=== PATIENT | female | born 1950 | race Caucasian/White ===

== ENCOUNTER 2017-05-04 11:38 | Inpatient (IN) ==
[2017-05-04] MEDS ORDERED: ASPIRIN 325 MG TABLET PO STA (12:02)
--- NOTE | 2017-05-04 12:05 | EKG Report ---
Stationary ECG Study [facility] ER Test Date: 05/04/2017 11:46:16 AM Pat Name: EMANUEL REYES Department: Room: Gender: F Rn Baby: Nick Jean : 1950 Requested by: Ced Elizondo Order Number: [id number] Reading MD: SABRA RIVAS Intervals [place] Rate: 67 P: 0 [place]: 211 QRS: 48 QRSD: 86 T: 51 QT: 376 QTc: 391 Interpretive Statements SINUS RHYTHM WITH FIRST DEGREE AV BLOCK Electronically Signed On 05-05-17 08:04:14 CDT by SABRA RIVAS [email or web address]
[2017-05-04 12:12] LABS: Basophils # 0.1 10*3/uL (0.0-0.2); Basophils % 1.1 % (0.0-0.8); Eosinophils # 0.1 10*3/uL (0.0-0.87); Eosinophils % 2.6 % (0.00-10.9); Hematocrit 42.1 VOL% (35.7-47.0); Hemoglobin 14.6 GM/DL (12.0-16.0); Immature Granulocytes % 0.2 %; Immature Granulocytes Absolute 0.01 #; Lymphocytes # 1.6 10*3/uL (1.4-4.0); Lymphocytes % 29.3 % (21.3-54.2); Mean Corpuscular HGB Conc 34.7 GM/DL (32-36); Mean Corpuscular Hemoglobin 32 PG (27-34); Mean Corpuscular Volume 91.7 FL (87-102); Mean Platelet Volume 11.1 FL (9.6-12.0); Monocytes # 0.8 10*3/uL (0.11-0.8); Monocytes % 15.6 % (1.7-12.7); Neutrophils # 2.8 10*3/uL (1.4-7.4); Neutrophils % 51.2 % (38.7-73.9); Platelet Count 202 T/CUMM (130-400); Red Blood Count 4.59 MC/CUMM (3.8-5.5); Red Cell Distribution Width 12.5 % (9.3-17.3); White Blood Count 5.4 T/CUMM (4-12)
[2017-05-04] MEDS: NITROGLYCERIN SL 0.4 MG TABLET SL PRN (12:19)
[2017-05-04] MEDS ORDERED: ASPIRIN 325 MG TABLET ONE (12:20)
[2017-05-04 12:37] LABS: Albumin 4.5 G/DL (3.4-5.0); Calcium 8.8 MG/DL (8.5-10.1); Osmolality,Calculated 284.1 MOS/KG (273-304); Potassium 4.6 MMOL/L (3.5-5.1); Total Protein 7.3 G/DL (6.4-8.3)
--- NOTE | 2017-05-04 12:39 | XRay Report ---
XR chest 1V portable Indication: Chest pain. Chest one view: Comparison 07/27/2016. Heart size and mediastinal contour are normal. Lungs are hypoinflated but generally clear, except for minimal bibasilar atelectasis. Pleural spaces are clear. Bones are intact. Impression: Mild pulmonary hypoinflation with atelectasis. PROCEDURE INTERPRETED AT [facility] DEPARTMENT OF RADIOLOGY Final Report Signed by: Romero Demarco M.D.
[2017-05-04 12:41] LABS: Eosinophils 2 % (0-10); Hypochromasia 1+; Lymphocytes 32 % (20-55); Platelet Estimate Normal; Segmented Neutrophils 46 % (50-85); Total Cells Counted 100
[2017-05-04] MEDS ORDERED: ONDANSETRON 4 MG/2 ML VIAL IV STA (12:41)
[2017-05-04] MEDS ORDERED: ONDANSETRON 4 MG/2 ML VIAL ONE (12:42)
--- NOTE | 2017-05-04 13:10 | EKG Report ---
Stationary ECG Study 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
[2017-05-04] MEDS ORDERED: MORPHINE 2 MG/1 ML SYRINGE IV PRN (13:22)
[2017-05-04] MEDS ORDERED: MAGNESIUM SULF RIDER 4 GM in PREMIX 1 EACH IV PRN (13:22)
[2017-05-04] MEDS ORDERED: ZALEPLON 5 MG CAPSULE PO PRN (13:22)
[2017-05-04] MEDS ORDERED: MAGNESIUM SULF RIDER 2 GM in PREMIX 1 EACH IV PRN (13:22)
--- NOTE | 2017-05-04 13:22 | Emergency Department Note ---
IGracie Mantricia, am scribing for, and in the presence of, Antwon Mcallister MD 12:03. IEsvin Doug C, MD, personally performed the services described in this documentation, ascribed by Miranda Bowman in my presence, and it is both accurate and complete . Arrival - Arrival Chief Complaint: Chest Pain Stated Complaint: chest pain ED Nursing Triage Note: c/o having chest pain since last evening, states it is pressure in nature., denies radiating pain., + SOB., denies nausea., ekg obtained at time of triage Mode of Arrival: Ambulatory Time Seen by Provider: 05/04/17 11:54 - History of Present Illness HPI Narrative: Patient is 67-year-old white female presents emergency room complaining of substernal chest pain started 6 PM last night. Patient states the pain is an intermittent substernal discomfort is not associated with radiation, nausea, vomiting or diaphoresis. Patient states he does feel bit short of breath with it but has not had any presyncope or palpitations. Patient today when she arrived emergency room her pain was 7 of 10. Patient states she took a baby aspirin last night which is her habit. Patient states the pain kept coming and going and lasted up to an hour any one time. She told me is is a little frightened by this pain thought she better get it checked out. She has no personal history of heart disease and told me she has had a normal stress test within the year. Allergies/Adverse Reactions: Allergies Allergy/AdvReac Type Severity Reaction Status Date / Time codeine Allergy HIVES Verified 05/04/17 11:44 Home Medications: Home Medications Medication Instructions Recorded Confirmed Type Aspirin EC Tab 81 mg PO QPM 02/25/15 05/04/17 History Cranberry 500 mg PO BID 02/25/15 05/04/17 History Omeprazole [Prilosec] 20 mg PO DAILY 02/25/15 05/04/17 History Selenium 200 mcg PO DAILY 02/25/15 05/04/17 History Thyroid [[place] Thyroid] 30 mg PO DAILY 02/25/15 05/04/17 History Atorvastatin [Lipitor] 40 mg PO DAILY 07/27/16 05/04/17 History Carvedilol 25 mg PO BID 07/27/16 05/04/17 History Cholecalciferol (Vitamin D3) 2,000 unit PO DAILY 07/27/16 05/04/17 History [Vitamin D3] Irbesartan 300 mg PO DAILY 07/27/16 05/04/17 History Magnesium Oxide [Magnesium] 400 mg PO BID 07/27/16 05/04/17 History NIFEdipine [Nifedipine ER] 30 mg PO DAILY 07/27/16 05/04/17 History Meloxicam [Mobic] 7.5 mg PO BID 05/04/17 05/04/17 History Vitamin E 400 unit PO DAILY 05/04/17 05/04/17 History Review of System - Review of System 12 point system: reviewed and no additional remarkable complaints except as stated - Review of System Constitutional: Absent: chills, diaphoresis Eyes: Absent: pain Head/Ears/Nose/Throat: Absent: earache Respiratory: Absent: cough Cardiovascular: Present: chest pain Gastrointestinal: Present: nausea. Absent: abdominal pain, vomiting, diarrhea Genitourinary female: Absent: dysuria, frequency Musculoskeletal: Absent: arthralgia, back pain, leg pain Skin: Absent: rash, lesions Neurological: Absent: headache, weakness, numbness, paresthesias Psychiatric: Absent: anxiety, depression Hematological/Lymphatic: Absent: easy bleeding, easy bruising Medical,Surgical,& Family Hx - Medical History Cardio: History of: Cerebrovascular Disease, Hypertension, Valvular Heart Disease (aortic insufficiency) Neurology: History of: Cerebrovascular Accident (had head injury at age 1 with stroke.) No history of: Seizures HEENT: History of: Eye Problem (cataracts) Endocrine: History of: Dyslipidemia Gastrointestinal: History of: Diverticulitis/ Diverticulosis, GERD (esophageal stricture), Ulcerative Colitis (has had in past), GI Problems (bryant's esophagus, hiatal hernia, colon polyps) Other: No history of: Anesthesia Reactions - Surgical History Neurologic Surgeries: Patient denies: Neurologic Surgery Abdominal Surgeries: Surgical HX of: Cholecystectomy Reproductive Surgeries: Surgical HX of;: Hysterectomy Orthopedic Surgeries: Surgical HX of;: Orthopedic Surgery (shoulder surgery), Total Knee Replacement (left) - Family History Family History: Denies;: Family Heart Disease - Social History Smoking Status: Never smoker Frequency of Alcohol Use: None Type of Drug Use: None Exam Vital Signs: Vital Signs Temperature 98.3 F 05/04/17 11:50 Pulse Rate 67 05/04/17 11:50 Respiratory Rate 18 05/04/17 12:00 Blood Pressure 166/51 05/04/17 11:50 O2 Sat by Pulse Oximetry 100 05/04/17 11:40 - General General appearance: alert, in no apparent distress - Head Head exam: Present: atraumatic, normocephalic, normal inspection - Eye Eye exam: Present: normal appearance, PERRL, EOMI - ENT ENT exam: Present: normal exam, normal oropharynx, mucous membranes moist - Neck Neck exam: Present: normal inspection, full ROM, trachea midline. Absent: tenderness - Chest Chest inspection: Present: normal inspection, symmetric chest wall rise. Absent : tenderness - Respiratory Respiratory exam: Present: normal lung sounds bilaterally - Cardiovascular Cardiovascular exam: Present: regular rate, normal rhythm, normal heart sounds - Abdominal Exam Abdominal exam: Present: soft, normal bowel sounds. Absent: distention, tenderness, guarding, rebound - Extremities Exam Extremities exam: Present: normal inspection, full ROM, normal capillary refill. Absent: tenderness, pedal edema - Back Exam Back exam: Present: normal inspection, full ROM. Absent: tenderness - Neurological Exam Neurological exam: Present: alert, oriented X3, CN II-XII intact. Absent: motor sensory deficit - Psychiatric Psychiatric exam: Present: normal affect, normal mood - Skin Skin exam: Present: warm, dry, intact, normal color Course Course Narrative: Patient's clinical presentation, laboratory and radiograph findings discussed Dr. Manuel Lott. He has the patient be admitted to the service of Dr. Conrad Melendez and will continue her cardiac evaluation here in the hospital. Results - Labs CBC & BMP: 05/04/17 11:17 05/04/17 11:17 Lab Results: I have reviewed the patients labs - EKG EKG results: interpreted by ERMIAS, sinus rhythm (67 bpm), no acute changes - Diagnostic Findings Procedure: Chest x-ray: report reviewed by me (Mild pulmonary hypoinflation with atelectasis. ) Disposition Clinical Impression: Chest pain Case discussed with: patient, patient's family Disposition: Still a Patient Condition: Guarded Time of Disposition: 13:22
--- NOTE | 2017-05-04 14:35 | Cardiology History & Physical ---
Assessment and Plan (1) Chest pain Status: Acute Assessment and plan: Her chest pain is very atypical for cardiac. She has had this pain now for really 18 hours her ECG is unchanged and her cardiac enzymes are negative. She had a cardiac perfusion study 8 months ago that was completely normal. Echocardiogram is normal at that time. We will check cardiac enzymes and follow -up. I think we will try Toradol as well. Current Visit: Yes (2) Hypertension Status: Chronic Assessment and plan: We will monitor blood pressure while she is in the hospital. Current Visit: Yes (3) Dyslipidemia Status: Chronic Assessment and plan: Is a chronic issue for which she is on a statin drug i.e. atorvastatin. Current Visit: Yes (4) GERD (gastroesophageal reflux disease) Status: Chronic Assessment and plan: This is a chronic issue she has a history of basal cell records of Bryant's esophagus and esophagitis. Current Visit: Yes (5) Esophagitis Status: Chronic Assessment and plan: Patient's and chart materials she has a history of Bryant's esophagus. Current Visit: Yes (6) Obesity Status: Chronic Assessment and plan: This is chronic. Current Visit: Yes History of Present Illness Chief complaint: Chest pain History of present illness: Ms. Mcclelland is a 67 year old female previously evaluated by Dr. Mike Melendez for chest pain. See below for that detail. Patient last night had sudden onset of what she described as a sharp stabbing chest pain with some dullness with it. This would come and go. It would exacerbate with deep breath and motion. This is persisted and continued off and on but never really completely resolved. She presented the emergency room today where she has had 2 ECGs are unremarkable without acute changes. Her chest x-ray was unremarkable. Her cardiac enzymes were nondetectable troponins. The patient states her pain is better. She is given some summary nitroglycerin at which she became nauseous. She may feel little shortness of breath with her pain. Overall though it has improved. There is no real radiation of the pain or discomfort. The patient states she has had this pain off and on previously. The same pain she had when she saw Dr. Melendez August 2016 and he carried out evaluation including echocardiogram that per report with normal left ventricular size and function ejection fraction percent with mild concentric left ventricular hypertrophy. There is no significant valvular abnormalities. She had a cardiac perfusion study that was read as having no evidence of ischemia perfusion abnormalities with normal ejection fraction. Her cardiac workup was negative. Her chest pain is felt to be noncardiac. It is important to note that this patient has had persistent pain now for over 12 hours actually over 18 hours and has unremarkable normal ECG and normal cardiac enzymes. This certainly would point away from his pain being cardiac. Home Medications Medication Instructions Recorded Confirmed Type Aspirin EC Tab 81 mg PO QPM 02/25/15 05/04/17 History Cranberry 500 mg PO BID 02/25/15 05/04/17 History Omeprazole [Prilosec] 20 mg PO DAILY 02/25/15 05/04/17 History Selenium 200 mcg PO DAILY 02/25/15 05/04/17 History Thyroid [[place] Thyroid] 30 mg PO DAILY 02/25/15 05/04/17 History Atorvastatin [Lipitor] 40 mg PO DAILY 07/27/16 05/04/17 History Carvedilol 25 mg PO BID 07/27/16 05/04/17 History Cholecalciferol (Vitamin D3) 2,000 unit PO DAILY 07/27/16 05/04/17 History [Vitamin D3] Irbesartan 300 mg PO DAILY 07/27/16 05/04/17 History Magnesium Oxide [Magnesium] 400 mg PO BID 07/27/16 05/04/17 History NIFEdipine [Nifedipine ER] 30 mg PO DAILY 07/27/16 05/04/17 History Meloxicam [Mobic] 7.5 mg PO BID 05/04/17 05/04/17 History Vitamin E 400 unit PO DAILY 05/04/17 05/04/17 History Allergies Allergy/AdvReac Type Severity Reaction Status Date / Time codeine Allergy HIVES Verified 05/04/17 11:44 Review of systems: Constitutional: Denies anorexia, chills, fatigue, fever, frequent falls, night sweats, weight gain, weight loss Eyes: Denies visual changes or loss of vision Ears: Denies decreased hearing, vertigo Nose, mouth and throat: Denies dysphagia, epistaxis, headaches, neck pain, tongue swelling, Neck: Denies thyromegaly or masses. No stiffness. Cardiovascular: as per HPI Respiratory: Denies cough, dyspnea, hemoptysis, dyspnea on exertion, wheezing, snoring Gastrointestinal: Denies abdominal pain, constipation, dyspepsia, dysphagia, hematemesis, hematochezia, melena, nausea, vomiting Genitourinary: Denies dysuria, hematuria, nocturia Musculoskeletal: Denies arthralgias, joint swelling, muscle weakness, myalgias Neurological: denies abnormal gait, abnormal speech, confusion, convulsions, frequent falls, headaches, memory loss, syncope Psychiatric: Denies anxiety, confusion, depression Endocrine: Denies cold intolerance, fatigue, heat intolerance Hematologic/Lymphatic: Denies easy bleeding, easy bruising Dermatologic: Denies Rash, itching, shingles Medical,Surgical,& Family Hx - Medical History Cardio: History of: Cerebrovascular Disease, Hypertension, Valvular Heart Disease (aortic insufficiency) Neurology: History of: Cerebrovascular Accident (had head injury at age 1 with stroke.) No history of: Seizures HEENT: History of: Eye Problem (cataracts) Endocrine: History of: Dyslipidemia Gastrointestinal: History of: Diverticulitis/ Diverticulosis, GERD (esophageal stricture), Ulcerative Colitis (has had in past), GI Problems (bryant's esophagus, hiatal hernia, colon polyps) Other: No history of: Anesthesia Reactions - Surgical History Neurologic Surgeries: Patient denies: Neurologic Surgery Abdominal Surgeries: Surgical HX of: Cholecystectomy Reproductive Surgeries: Surgical HX of;: Hysterectomy Orthopedic Surgeries: Surgical HX of;: Orthopedic Surgery (shoulder surgery), Total Knee Replacement (left) - Family History Family History: Denies;: Family Heart Disease - Social History Smoking Status: Never smoker Frequency of Alcohol Use: None Type of Drug Use: None Cardiology Physical Exam - Constitutional Vitals: Vital Signs Temp Pulse Resp BP Pulse Ox 98.1 F 70 18 133/93 99 05/04/17 14:24 05/04/17 14:24 05/04/17 14:24 05/04/17 14:24 05/04/17 14:24 Intake and Output 05/03/17 05/04/17 05/04/17 23:59 07:59 15:59 Other: Weight 81.647 kg Patient Weight 05/04/17 23:59 Weight 81.647 kg Exam: General appearance: Obese, no acute distress Head exam: normal inspection, atraumatic Eye exam: Pupils are equal and reactive. EOMI. There is no trauma. Ear exam: Anatomically normal. Normal auditory acuity to conversation. Oral exam: No significant oral lesions. Neck exam: normal inspection no JVD. No carotid bruit. Trachea is in midline. Respiratory exam: clear to auscultation bilaterally posteriorly and anteriorly with good air movement. No rales, rhonchi or wheezes. Cardiovascular exam: regular rate and rhythm, no murmur or gallop or rub. No precordial lift. No bruits over the major arteries. Chest wall/torso: Anatomically normal. No tenderness, deformity Peripheral Pulses: 2+ throughout. GI/Abdominal exam: normal bowel sounds, soft and nontender, no abdominal bruits or pulsatile masses. Musculoskeletal/Extremities exam: normal inspection without edema or cyanosis. No deformities or trauma. Neurological exam: alert, oriented X3. There is no gross neurologic deficits. Psychiatric exam: normal affect, normal mood. Cognitive function is grossly intact. Skin exam: normal color, warm. No rashes or other skin lesions. Result/EKG - Labs CBC & BMP: 05/04/17 11:17 05/04/17 11:17 Lab Results: I have reviewed the past 24 hour labs Labs: Laboratory Results - last 24 hr 05/04/17 05/04/17 05/04/17 11:17 11:17 11:17 WBC 5.4 RBC 4.59 Hgb 14.6 Hct 42.1 MCV 91.7 MCH 32 MCHC 34.7 RDW 12.5 Plt Count 202 MPV 11.1 Neut % (Auto) 51.2 Lymph % (Auto) 29.3 Mcdonald % (Auto) 15.6 H Eos % (Auto) 2.6 Baso % (Auto) 1.1 H Neut # (Auto) 2.8 Lymph # (Auto) 1.6 Mcdonald # (Auto) 0.8 Eos # (Auto) 0.1 Baso # (Auto) 0.1 Total Counted 100 Immature Gran % 0.2 Nucleated RBC % 0.0 Immature Gran # 0.01 Segmented Neutrophils 46 L Lymphocytes 32 Monocytes 20 H Eosinophils 2 Nucleated RBCs # 0.00 Platelet Estimate Normal Hypochromasia 1+ Sodium 142 Potassium 4.6 Chloride 105 Carbon Dioxide 28 Anion Gap 13.6 BUN 14 Creatinine 0.80 GFR Calculation 81 BUN/Creatinine Ratio 17.00 Glucose 108 H Calculated Osmolality 284.1 Calcium 8.8 Total Bilirubin 1.00 AST 24 ALT 37 Alkaline Phosphatase 102 Troponin I < 0.015 Total Protein 7.3 Albumin 4.5 Globulin 2.8 Albumin/Globulin Ratio 1.6
[2017-05-04] MEDS: DEXTROSE 5% NACL 0.45% 1,000 ML IV SCH (14:52)
--- NOTE | 2017-05-04 15:09 | EKG Report ---
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
[2017-05-04] MEDS: ENOXAPARIN 80 MG/0.8 ML SYRINGE SUBCUT SCH (15:29)
[2017-05-04] MEDS: KETOROLAC 30 MG/1 ML VIAL IV SCH ×2 (15:29→20:11)
[2017-05-04] MEDS: ASPIRIN EC 81 MG TABLET PO SCH (18:36)
[2017-05-04] MEDS: METOPROLOL TARTRATE 25 MG TABLET PO SCH (20:14)
[2017-05-04] MEDS: CARVEDILOL 25 MG TABLET PO SCH (20:14)
[2017-05-04] MEDS: MELOXICAM 7.5 MG TABLET PO SCH (20:14)
[2017-05-04] MEDS: MAGNESIUM OXIDE 400 MG TABLET PO SCH (20:14)
[2017-05-04] MEDS: PANTOPRAZOLE 40 MG TABLET PO SCH (20:14)
[2017-05-04] MEDS ORDERED: NON-FORMULARY MEDICATION (Cranberry [Cranberry] 500 MG) PO SCH (21:00)
[2017-05-05] MEDS: DEXTROSE 5% NACL 0.45% 1,000 ML IV SCH (00:01)
[2017-05-05] MEDS: ENOXAPARIN 80 MG/0.8 ML SYRINGE SUBCUT SCH ×2 (02:03→16:53)
[2017-05-05] MEDS: KETOROLAC 30 MG/1 ML VIAL IV SCH ×2 (02:03→09:32)
--- NOTE | 2017-05-05 04:59 | EKG Report ---
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
[2017-05-05] MEDS: THYROID 60 MG TABLET PO SCH (08:08)
[2017-05-05] MEDS ORDERED: NON-FORMULARY MEDICATION (Omeprazole [Prilosec] 20 MG) PO SCH (09:00)
[2017-05-05] MEDS: IRBESARTAN 150 MG TABLET PO SCH (09:18)
[2017-05-05] MEDS: MELOXICAM 7.5 MG TABLET PO SCH ×2 (09:19→20:46)
[2017-05-05] MEDS: CARVEDILOL 25 MG TABLET PO SCH ×2 (09:19→20:46)
[2017-05-05] MEDS: CHOLECALCIFEROL 1,000 UNIT TABLET PO SCH (09:20)
[2017-05-05] MEDS: VITAMIN E 400 UNIT CAPSULE PO SCH (09:20)
[2017-05-05] MEDS: SELENIUM 200 MCG TABLET PO SCH (09:21)
[2017-05-05] MEDS: MAGNESIUM OXIDE 400 MG TABLET PO SCH ×2 (09:22→20:46)
[2017-05-05] MEDS: ATORVASTATIN 40 MG TABLET PO SCH (09:22)
[2017-05-05] MEDS: PANTOPRAZOLE 40 MG TABLET PO SCH ×2 (09:23→20:46)
[2017-05-05] MEDS: METOPROLOL TARTRATE 25 MG TABLET PO SCH ×2 (09:30→20:46)
--- NOTE | 2017-05-05 09:38 | Cardiology Progress Note ---
Assessment and Plan - Time spent with patient Time spent with patient: Greater than 30 minutes (1) Chest pain Status: Acute Assessment and plan: Her chest pain is atypical for cardiac. She continues to have some discomfort off and on. Her cardiac enzymes are nondetectable troponins. Her ECG admission was unremarkable we will repeat this. Because her recurrent symptoms and her concern that this is cardiac in the fact she has had a cholecystectomy before I think cardiac catheterization for definitive diagnosis and possible percutaneous coronary intervention is appropriate. I discussed this procedure with the patient and her as noted above. Current Visit: Yes (2) Hypertension Status: Chronic Assessment and plan: One blood pressure is upper limit this morning but the blood pressures been fairly stable. Current Visit: Yes (3) Dyslipidemia Status: Chronic Assessment and plan: Is a chronic issue for which she is on a statin drug i.e. atorvastatin. Current Visit: Yes (4) GERD (gastroesophageal reflux disease) Status: Chronic Assessment and plan: This is a chronic issue she has a history of basal cell records of Camilo's esophagus and esophagitis. Current Visit: Yes (5) Esophagitis Status: Chronic Assessment and plan: Patient's and chart materials she has a history of Camilo's esophagus. Current Visit: Yes (6) Obesity Status: Chronic Assessment and plan: This is chronic. Current Visit: Yes Cardiology - PN: Subj Interval history: Patient is doing well. She has intermittent lower mid chest pain. This comes and goes and nothing particular exacerbates it. She is concerned that it is her heart. She has had no shortness of breath nausea diaphoresis. Her initial ECG was unremarkable. Her troponins have all been nondetectable at less than 0.015. As noted previously 6-8 months ago her cardiac evaluation included ECG and cardiac perfusion study were normal for the same pain. She is recurrently had the same pain but she continues to be concerned that this is her heart. I think in light of this and the persistence and recurrence of the pain that she should have cardiac catheterization for definitive diagnosis of yes or no that this is cardiac or not. I discussed cardiac catheterization with the patient and her reviewing indication procedure how would be carried out in the risk. I discussed cardiac catheterization and percutaneous coronary intervention with the patient and available family. I reviewed with them the indications for the procedure and the basis of how the procedure would be carried out. I also reviewed with them the risk of the procedure which include but not necessarily limited to access site bleeding, bruising, pain, swelling or vascular injury that may require emergency vascular surgery, blood transfusion, or thrombin injection. Also discussed the possibility of stroke, myocardial infarction, arrhythmia which may require electrocardioversion, and the possibility of dye reaction that would require medical therapy. Also discussed the possibility of coronary artery injury, ruptured, closure or perforation that may require emergency bypass surgery. We also discussed the possibility of from a major complication. They voice understanding and agree to proceed. This procedure be carried out tomorrow by Dr. Melendez who will be in the hospital tomorrow. I have already notified hospital skoog machine operator to place her name of the cast schedule but the time to be determined. Exam (Progress Note) - Constitutional Vitals: Period Temp Pulse Resp BP Sys/Saravia Pulse Ox Last 24 Hr 96.5 F-98.4 F 58-70 16-20 122-185/51-93 93-100 Exam: General appearance: Obese, no acute distress Head exam: normal inspection, atraumatic Neck exam: normal inspection no JVD. No carotid bruit. Trachea is in midline. Respiratory exam: clear to auscultation bilaterally posteriorly and anteriorly with good air movement. No rales, rhonchi or wheezes. Cardiovascular exam: regular rate and rhythm, no murmur or gallop or rub. No precordial lift. No bruits over the major arteries. Chest wall/torso: Anatomically normal. No tenderness, deformity Peripheral Pulses: 2+ throughout. GI/Abdominal exam: normal bowel sounds, soft and nontender, no abdominal bruits or pulsatile masses. Musculoskeletal/Extremities exam: normal inspection without edema or cyanosis. No deformities or trauma. Neurological exam: alert, oriented X3. There is no gross neurologic deficits. Psychiatric exam: normal affect, normal mood. Cognitive function is grossly intact. Skin exam: normal color, warm. No rashes or other skin lesions. Result/EKG - Labs CBC & BMP: 05/04/17 11:17 05/04/17 11:17 Lab Results: I have reviewed the past 24 hour labs Labs: Laboratory Results - last 24 hr 05/04/17 05/04/17 05/04/17 11:17 11:17 11:17 WBC 5.4 RBC 4.59 Hgb 14.6 Hct 42.1 MCV 91.7 MCH 32 MCHC 34.7 RDW 12.5 Plt Count 202 MPV 11.1 Neut % (Auto) 51.2 Lymph % (Auto) 29.3 [place] % (Auto) 15.6 H Eos % (Auto) 2.6 Baso % (Auto) 1.1 H Neut # (Auto) 2.8 Lymph # (Auto) 1.6 [facility] # (Auto) 0.8 Eos # (Auto) 0.1 Baso # (Auto) 0.1 Total Counted 100 Immature Gran % 0.2 Nucleated RBC % 0.0 Immature Gran # 0.01 Segmented Neutrophils 46 L Lymphocytes 32 Monocytes 20 H Eosinophils 2 Nucleated RBCs # 0.00 Platelet Estimate Normal Hypochromasia 1+ Sodium 142 Potassium 4.6 Chloride 105 Carbon Dioxide 28 Anion Gap 13.6 BUN 14 Creatinine 0.80 GFR Calculation 81 BUN/Creatinine Ratio 17.00 Glucose 108 H Calculated Osmolality 284.1 Calcium 8.8 Total Bilirubin 1.00 AST 24 ALT 37 Alkaline Phosphatase 102 Troponin I < 0.015 Total Protein 7.3 Albumin 4.5 Globulin 2.8 Albumin/Globulin Ratio 1.6 05/04/17 05/04/17 14:32 17:33 WBC RBC Hgb Hct MCV MCH MCHC RDW Plt Count MPV Neut % (Auto) Lymph % (Auto) [facility] % (Auto) Eos % (Auto) Baso % (Auto) Neut # (Auto) Lymph # (Auto) [facility] # (Auto) Eos # (Auto) Baso # (Auto) Total Counted Immature Gran % Nucleated RBC % Immature Gran # Segmented Neutrophils Lymphocytes Monocytes Eosinophils Nucleated RBCs # Platelet Estimate Hypochromasia Sodium Potassium Chloride Carbon Dioxide Anion Gap BUN Creatinine GFR Calculation BUN/Creatinine Ratio Glucose Calculated Osmolality Calcium Total Bilirubin AST ALT Alkaline Phosphatase Troponin I < 0.015 < 0.015 Total Protein Albumin Globulin Albumin/Globulin Ratio - Impressions Impressions: Telemetry unremarkable with normal sinus rhythm.
[2017-05-05] MEDS ORDERED: MAGNESIUM SULF RIDER 2 GM in PREMIX 1 EACH IV PRN ×2 (09:44→09:48)
[2017-05-05] MEDS ORDERED: POTASSIUM CHLORIDE RIDER 10 MEQ in PREMIX 1 EACH IV PRN ×2 (09:44→09:48)
[2017-05-05] MEDS ORDERED: DIAZEPAM 5 MG TABLET PO ONE (09:48)
[2017-05-05] MEDS ORDERED: diphenhydrAMINE CAP 25 MG CAPSULE PO ONE (09:48)
[2017-05-05] MEDS ORDERED: ASPIRIN 325 MG TABLET PO ONE (09:48)
[2017-05-05] MEDS ORDERED: LOPERAMIDE 2 MG CAPSULE PO ONE (17:53)
[2017-05-05] MEDS: ASPIRIN EC 81 MG TABLET PO SCH (18:15)
[2017-05-06] MEDS: ENOXAPARIN 80 MG/0.8 ML SYRINGE SUBCUT SCH ×2 (01:53→17:16)
[2017-05-06] MEDS: NITROGLYCERIN SL 0.4 MG TABLET SL PRN (02:18)
[2017-05-06] MEDS ORDERED: ALUM/MAG/SIMETH/LIDO VISC 1:1 30 ML BOTTLE PO ONE (02:45)
[2017-05-06] MEDS: ONDANSETRON 4 MG/2 ML VIAL IV PRN ×2 (02:50→12:00)
[2017-05-06] MEDS: DEXTROSE 5% NACL 0.45% 1,000 ML IV SCH (03:09)
[2017-05-06 05:11] LABS: Risk Ratio 3.12
[2017-05-06] MEDS ORDERED: diphenhydrAMINE CAP 25 MG CAPSULE PO ONE (06:00)
[2017-05-06] MEDS ORDERED: DIAZEPAM 5 MG TABLET PO ONE (06:00)
[2017-05-06] MEDS: SODIUM CHLORIDE 0.9% 1,000 ML IV SCH ×3 (06:05→23:07)
--- NOTE | 2017-05-06 07:12 | EKG Report ---
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
[2017-05-06] MEDS: MAGNESIUM OXIDE 400 MG TABLET PO SCH ×2 (08:05→21:39)
[2017-05-06] MEDS: METOPROLOL TARTRATE 25 MG TABLET PO SCH ×2 (08:05→21:39)
[2017-05-06] MEDS: SELENIUM 200 MCG TABLET PO SCH (08:05)
[2017-05-06] MEDS: PANTOPRAZOLE 40 MG TABLET PO SCH ×2 (08:05→21:39)
[2017-05-06] MEDS: ATORVASTATIN 40 MG TABLET PO SCH (08:05)
[2017-05-06] MEDS: IRBESARTAN 150 MG TABLET PO SCH (08:05)
[2017-05-06] MEDS: CARVEDILOL 25 MG TABLET PO SCH ×2 (08:05→21:39)
[2017-05-06] MEDS: VITAMIN E 400 UNIT CAPSULE PO SCH (08:05)
[2017-05-06] MEDS: CHOLECALCIFEROL 1,000 UNIT TABLET PO SCH (08:05)
[2017-05-06] MEDS: MELOXICAM 7.5 MG TABLET PO SCH ×2 (08:06→21:39)
[2017-05-06] MEDS: THYROID 60 MG TABLET PO SCH (08:06)
[2017-05-06] MEDS ORDERED: ASPIRIN 325 MG TABLET ONE ×2 (08:07→09:03)
[2017-05-06] MEDS ORDERED: HEPARIN/NACL 0.9% 2 UNITS/ML 0 ML IV ONE (08:19)
[2017-05-06] MEDS ORDERED: LIDOCAINE 1% 20 ML VIAL ONE (08:26)
[2017-05-06] MEDS ORDERED: VERAPAMIL 5 MG/2 ML VIAL ONE (08:26)
[2017-05-06] MEDS ORDERED: MIDAZOLAM 2 MG/2 ML VIAL ONE (08:26)
[2017-05-06] MEDS ORDERED: HYDROmorphone 2 MG/1 ML VIAL ONE (08:26)
[2017-05-06] MEDS ORDERED: HEPARIN/NACL 0.9% 2 UNITS/ML 1,000 ML IV ONE (08:26)
[2017-05-06] MEDS ORDERED: NITROGLYCERIN DRIP 50 MG/250 ML BOTTLE IV ONE (08:26)
[2017-05-06] MEDS ORDERED: TICAGRELOR 90 MG TABLET ONE (09:03)
[2017-05-06] MEDS ORDERED: ACETAMINOPHEN 325 MG TABLET PO PRN (09:23)
--- NOTE | 2017-05-06 09:26 | Cardiac Catheterization ---
Date of Procedure:: 05/06/17 Procedure: CLINICAL HISTORY: The patient presented with symptoms of unstable angina. She is undergoing cardiac catheterization for definitive coronary artery assessment possible revascularization. PROCEDURES PERFORMED: 1. Right radial percutaneous arteriotomy 2. Left heart catheterization 3. Resting hemodynamics 4. Left ventriculography. 5. Coronary arteriography 6. Hemoband placement 7. Percutaneous coronary intervention to the mid and proximal to mid right coronary artery with 2 3.25 x 15 mm Xience alpine drug-eluting stents placed in an overlapping fashion. DESCRIPTION OF PROCEDURE: After obtaining informed consent, the patient was taken to the rn cardiac cath, prepped and draped in the usual sterile manner. We accessed the right radial artery using modified Seldinger technique in the usual fashion. We placed a 6-Hungarian slim sheath without difficulty. We then used a Tig catheter to engage the right coronary and left main coronary arteries to perform angiography in multiple orthogonal views. We then proceeded directly to percutaneous coronary intervention. We engaged the right coronary artery with a JR4 interventional guide and passed a PT Graphix wire beyond the area of stenosis in the mid right coronary artery. We then perform primary stenting with a 3.25 x 15 mm Xience alpine drug-eluting stent. In the process of placing the stent R guide was pulled deeper into the coronary artery. We achieved an excellent result with the stent, but there was some residual stenosis in the proximal to mid right coronary artery so we placed a second stent in this location overlapping with the first stent. We then did postdilatation of the interface between the 2 stents. An excellent angiographic result was achieved with no significant residual stenosis. There were no problems or complications during the procedure. We then used an angled pigtail catheter to perform a left heart catheterization with left ventriculogram and pressure measurement in the usual fashion. After removing the catheter, we placed a HemoBand and removed the sheath without difficulty. There were no problems during the case. HEMODYNAMICS: Please see the accompanying data sheet. Left ventricular end- diastolic pressure is 9 mmHg. CORONARIES: The left main coronary artery is moderate to large caliber vessel which bifurcates into the left anterior descending and left circumflex coronary arteries. There is an ostial 40% stenosis of the left main coronary artery. The left circumflex coronary artery is a moderate-sized vessel which gives off 2 moderate-sized obtuse marginal branches. There are diffuse luminal irregularities of up to 30 for 40% in the circumflex system but no significant focal obstruction is seen. The left anterior descending is a moderate-sized vessel which gives off a moderate-sized first diagonal branch. There is some diffuse luminal disease of up to 30-40% in the left anterior descending coronary artery but no significant focal obstruction is seen. The right coronary artery is a large-caliber vessel which gives of the posterior descending artery and it extensive posterior lateral system. There is a long area of disease mild to moderate proximally and a focal 80-90% stenosis in the mid right coronary artery. LEFT VENTRICULOGRAPHY: Left ventriculogram shows left ventricular ejection fraction of approximately 65% with normal regional wall motion. IMPRESSION: 1. Successful percutaneous coronary intervention to the right coronary artery with 2 3.25 x 15 mm Xience alpine drug-eluting stents placed in an overlapping fashion in the proximal to mid and mid right coronary arteries. 2. Preserved left ventricular systolic function. 3. Normal left ventricular end-diastolic pressure. 4. Mild nonobstructive coronary artery disease in the left coronary artery system. PLAN: The patient will be transferred back to the telemetry unit for postintervention monitoring and management. If she does well I would anticipate possible discharge home tomorrow with continued medical therapy and risk factor modification. Anesthesia: minimal conscious sedation Surgeon / Physician: Conrad Melendez Estimated blood loss: minimal Condition: stable Disposition: floor - Medications / Follow-up
--- NOTE | 2017-05-06 09:53 | EKG Report ---
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
[2017-05-06] MEDS: ASPIRIN EC 81 MG TABLET PO SCH (18:00)
[2017-05-06] MEDS: TICAGRELOR 90 MG TABLET PO SCH (21:39)
[2017-05-07] MEDS: ENOXAPARIN 80 MG/0.8 ML SYRINGE SUBCUT SCH (01:45)
[2017-05-07 05:25] LABS: Basophils % 0.5 % (0.0-0.8); Eosinophils # 0.1 10*3/uL (0.0-0.87); Eosinophils % 2.2 % (0.00-10.9); Hemoglobin 12.7 GM/DL (12.0-16.0); Immature Granulocytes % 0.5 %; Immature Granulocytes Absolute 0.02 #; Lymphocytes # 1.1 10*3/uL (1.4-4.0); Lymphocytes % 27.8 % (21.3-54.2); Mean Corpuscular HGB Conc 34.3 GM/DL (32-36); Mean Corpuscular Hemoglobin 31 PG (27-34); Mean Corpuscular Volume 90.9 FL (87-102); Mean Platelet Volume 11.8 FL (9.6-12.0); Monocytes # 0.8 10*3/uL (0.11-0.8); Monocytes % 20.3 % (1.7-12.7); Neutrophils % 48.7 % (38.7-73.9); Red Blood Count 4.07 MC/CUMM (3.8-5.5); Red Cell Distribution Width 12.8 % (9.3-17.3)
[2017-05-07 05:26] LABS: Platelet Count 144 T/CUMM (130-400)
[2017-05-07] MEDS: SODIUM CHLORIDE 0.9% 1,000 ML IV SCH ×2 (05:46→13:32)
[2017-05-07 05:49] LABS: Calcium 8.2 MG/DL (8.5-10.1); Magnesium 2.3 MG/DL (1.8-2.4); Osmolality,Calculated 281.1 MOS/KG (273-304); Potassium 4.5 MMOL/L (3.5-5.1)
[2017-05-07 05:54] LABS: Band Neutrophils 2 % (0-10); Eosinophils 1 % (0-10); Lymphocytes 27 % (20-55); Segmented Neutrophils 52 % (50-85); Total Cells Counted 100
[2017-05-07 05:55] LABS: Platelet Estimate Decreased
[2017-05-07 05:58] LABS: Troponin I Only 0.317 NG/ML (0.00-0.045)
--- NOTE | 2017-05-07 07:47 | EKG Report ---
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
[2017-05-07] MEDS: THYROID 60 MG TABLET PO SCH (09:02)
[2017-05-07] MEDS: METOPROLOL TARTRATE 25 MG TABLET PO SCH (09:03)
[2017-05-07] MEDS: MELOXICAM 7.5 MG TABLET PO SCH (09:03)
[2017-05-07] MEDS: ATORVASTATIN 40 MG TABLET PO SCH (09:03)
[2017-05-07] MEDS: CARVEDILOL 25 MG TABLET PO SCH (09:03)
[2017-05-07] MEDS: VITAMIN E 400 UNIT CAPSULE PO SCH (09:03)
[2017-05-07] MEDS: IRBESARTAN 150 MG TABLET PO SCH (09:03)
[2017-05-07] MEDS: PANTOPRAZOLE 40 MG TABLET PO SCH (09:03)
[2017-05-07] MEDS: MAGNESIUM OXIDE 400 MG TABLET PO SCH (09:03)
[2017-05-07] MEDS: SELENIUM 200 MCG TABLET PO SCH (09:03)
[2017-05-07] MEDS: TICAGRELOR 90 MG TABLET PO SCH (09:03)
[2017-05-07] MEDS: CHOLECALCIFEROL 1,000 UNIT TABLET PO SCH (09:03)
--- NOTE | 2017-05-07 10:11 | Discharge Summary ---
Hospital Course - Hospital Course Hospital Course: [place]er: Dr. Melendez Ms. Mcclelland, 67-year-old followed by Dr. Melendez. She is a past medical history of hypertension, dyslipidemia, GERD and obesity. She presented to [facility] with complaints of chest pain. Her initial ECG was unremarkable. Her troponins have all been nondetectable at less than 0.015. However, she continues to be concerned that this is her heart. Therefore, she underwent cardiac catheterization for definitive diagnosis. Left heart catheterization was performed by Dr. Melendez May 06, 2017 with the following impressions noted: IMPRESSION: 1. Successful percutaneous coronary intervention to the right coronary artery with 2 3.25 x 15 mm Xience alpine drug-eluting stents placed in an overlapping fashion in the proximal to mid and mid right coronary arteries. 2. Preserved left ventricular systolic function. 3. Normal left ventricular end-diastolic pressure. 4. Mild nonobstructive coronary artery disease in the left coronary artery system. Post cardiac catheterization patient was transferred reported back to the telemetry unit in stable condition. Overnight, she has done well and has had no combinations. This morning, she is without chest pain, heaviness and tightness. She reports that her chest discomfort has greatly improved after PCI to her RCA. Right wrist is soft without bleeding or hematoma. Right radial pulse 2+. Patient has ambulated around the room and down the [facility] without difficulty. She has perform these activities without chest pain, heaviness and tightness. Labs have been reviewed. Creatinine is stable post catheterization at 0.8. Patient is anxious for discharge home. Having felt that patient has met maximal medical therapy, she will be discharged home in stable condition. Educated patient on the importance of compliance with dual antiplatelet therapy. She will be given a prescription for Brilinta and aspirin upon discharge. She verbalized understanding of this. Patient has been given a follow-up appointment with Dr. Melendez in 2 weeks with CBC, BMP, magnesium and EKG. Patient verbalized understanding of discharge instructions and discharge medications. Diagnosis - Discharge Diagnosis (1) Status post insertion of drug-eluting stent into right coronary artery for coronary artery disease Status: Acute (2) Chest pain Status: Resolved (3) Hypertension Status: Chronic (4) Obesity Status: Chronic (5) Dyslipidemia Status: Chronic (6) GERD (gastroesophageal reflux disease) Status: Chronic Specialty Discharge - Follow Up or Referrals Follow up with: Conrad Melendez MD [Physician] - 2 Weeks (Patient will need a follow-up appointment with Dr. Melendez in 2 weeks with CBC, BMP, magnesium and EKG.) Discharge Plan - Discharge Data Disposition: Disch To Home/Self Care Condition at Discharge: Stable Discharge Diet: heart healthy Activity: no lifting (No heavy lifting or squatting 1 week.) Hygiene: may shower Driving: other (Post cath expectations) Contact your physician if you experience:: fever over 101, Difficulty voiding, Redness or swelling, Nausea/Vomiting, Shortness of breath, Bleeding, pain uncontrolled by pain medications - Discharge Medications New Nitroglycerin Sl Tab [Nitrostat] 0.4 mg SL Q5M PRN #1 bottle PRN Reason: Chest Pain Ticagrelor [Brilinta] 90 mg PO BID #60 tablet Continue Aspirin EC Tab 81 mg PO QPM Thyroid [[place] Thyroid] 30 mg PO DAILY Cranberry 500 mg PO BID Omeprazole [Prilosec] 20 mg PO DAILY Selenium 200 mcg PO DAILY Atorvastatin [Lipitor] 40 mg PO DAILY Magnesium Oxide [Magnesium] 400 mg PO BID Cholecalciferol (Vitamin D3) [Vitamin D3] 2,000 unit PO DAILY NIFEdipine [Nifedipine ER] 30 mg PO DAILY Irbesartan 300 mg PO DAILY Carvedilol 25 mg PO BID Meloxicam [Mobic] 7.5 mg PO BID Vitamin E 400 unit PO DAILY - Follow Up or Referral - Forms/Instructions Exam - Constitutional Vitals: Period Temp Pulse Resp BP Sys/Saravia Pulse Ox Last 24 Hr 97.2 F-99 F 56-71 16-18 104-128/54-74 90-96 Exam: General: Appears well with no apparent distress. Pleasant and cooperative. Appears comfortable. HEENT: PERRL, normocephalic, atraumatic. Mucous membranes moist. No jaundice noted. Conjunctiva moist and clear, sclerae anicteric Neck: No JVD/HJR, no thyromegaly or lymphadenopathy noted. No carotid bruit appreciated Cardiac: Regular rate and rhythm. No murmur rub or gallop. Lungs: Clear to auscultation without accessory muscle use to assist the respiratory pattern. Not requiring oxygen. Abdomen: Soft, bowel sounds normoactive. Nontender and nondistended. No abdominal bruit or thrill noted. No masses noted. Extremities: No clubbing, cyanosis noted. No edema noted. Upper extremity pulses 2+. Lower extremity pulses 2+. Capillary refill less than 3 seconds. Right wrist without bleeding and hematoma. Right radial pulse 2+. Skin: No unusual lesions or rashes. No skin breakdown appreciated. Neuro: Awake, alert and oriented 3. Moves all extremities well without hemiparesis or paralysis. No essential tremor is appreciated. Discharge Results Procedures and tests throughout hospitalization: Pending Orders 05/07/17 09:42 Troponin,CKMB & Ck Total Routine Labs on day of discharge: Labs from last 24 hours 05/07/17 05/07/17 05/07/17 04:07 04:07 04:07 WBC 4.0 RBC 4.07 Hgb 12.7 Hct 37.0 MCV 90.9 MCH 31 MCHC 34.3 RDW 12.8 Plt Count 144 D MPV 11.8 Neut % (Auto) 48.7 Lymph % (Auto) 27.8 [place] % (Auto) 20.3 H Eos % (Auto) 2.2 Baso % (Auto) 0.5 Neut # (Auto) 2.0 Lymph # (Auto) 1.1 L [place] # (Auto) 0.8 Eos # (Auto) 0.1 Baso # (Auto) 0.0 Total Counted 100 Immature Gran % 0.5 Nucleated RBC % 0.0 Immature Gran # 0.02 Segmented Neutrophils 52 Band Neutrophils 2 Lymphocytes 27 Monocytes 18 H Eosinophils 1 Nucleated RBCs # 0.00 Platelet Estimate Decreased Sodium 142 Potassium 4.5 Chloride 106 Carbon Dioxide 29 Anion Gap 11.5 BUN 10 Creatinine 0.80 GFR Calculation 82 BUN/Creatinine Ratio 12.00 Glucose 107 H Calculated Osmolality 281.1 Calcium 8.2 L Magnesium 2.3 Total Creatine Kinase 104 CK-MB (CK-2) 2.3 Troponin I 0.317 H D - Imaging and Cardiology Cardiology Procedure: report reviewed by me Procedure: Chest x-ray: report reviewed by DS: Provider Date of admission: 05/04/17 13:22 Primary care physician: . No PCP Attending physician on admission: Conrad Melendez MD Discharging clinician: Jenny Duffy NP Expected date of discharge: 05/07/17
[2017-05-07 10:45] LABS: Troponin I Only 0.243 NG/ML (0.00-0.045)
[2017-05-07 11:25] VITALS: BP 127/65
== END 2017-05-07 13:44 | disposition home or self-care (01) | DRG 247 ==
LOC: N.ED 11:38 → N.EDINP 11:38 → OBSVTOIN 13:22 → N.TELEN 14:13
PROVIDERS: ADMIT Internal Medicine Cardiovascular Disease; ATTEND Internal Medicine Cardiovascular Disease
PROC: CLCCHCL (ICD-10-PCS; 2017-05-06 10:15)

== ENCOUNTER 2017-05-16 22:28 | Observation (INO) ==
[2017-05-16] MEDS ORDERED: ASPIRIN 325 MG TABLET PO STA (22:52)
[2017-05-16] MEDS ORDERED: NITROGLYCERIN 2% OINT 1 INCH/GM PACK TOP STA (22:52)
[2017-05-16] MEDS ORDERED: PANTOPRAZOLE 40 MG VIAL IV STA (22:54)
[2017-05-16] MEDS ORDERED: METOCLOPRAMIDE 10 MG/2 ML VIAL IV STA (22:54)
--- NOTE | 2017-05-16 22:57 | Emergency Department Note ---
Arrival - Arrival Chief Complaint: Chest Pain Stated Complaint: chest pain ED Nursing Triage Note: C/O Chest pressure midsternal on and off since 2016. Pt states that she came in on the and was taken to [facility] core[facility] where she had 2 stents placed, pt reports that she wasn't pain free at discharge and discussed this with Dr. Melendez without knowing what could be causing the pain. Denies calling him since she has been home. Pt denies SOB/Nausea/Diaphoresis. EKG obtained Mode of Arrival: Wheelchair Limitations: No Limitations Source: Patient Time Seen by Provider: 05/16/17 22:52 - History of Present Illness HPI Narrative: This 67-year-old white female presents with intermittent chest pressure associated with shortness of breath since discharge by Dr. Melendez after having received cardiac stents on May 06. The patient states she had this discomfort at the time of discharge but was told that was probably secondary to the procedure and would resolve. However, it has not resolved and in fact on occasion the chest pressure has woken her from a sleep associated with shortness of breath but no nausea, vomiting, or diaphoresis. Also of note she has had increased complaints of heartburn, belching, and water brash. Currently she appears stable and in no acute distress. Onset (ago): day(s) (Patient presents 10 days post onset of symptoms) Date of Last Menstrual Period: Hysterectomy Allergies/Adverse Reactions: Allergies Allergy/AdvReac Type Severity Reaction Status Date / Time codeine Allergy HIVES Verified 05/04/17 11:44 Home Medications: Home Medications Medication Instructions Recorded Confirmed Type Aspirin EC Tab 81 mg PO QPM 02/25/15 05/16/17 History Cranberry 500 mg PO BID 02/25/15 05/16/17 History Omeprazole [Prilosec] 20 mg PO DAILY 02/25/15 05/16/17 History Selenium 200 mcg PO DAILY 02/25/15 05/16/17 History Thyroid [[place] Thyroid] 30 mg PO DAILY 02/25/15 05/16/17 History Atorvastatin [Lipitor] 40 mg PO DAILY 07/27/16 05/16/17 History Carvedilol 25 mg PO BID 07/27/16 05/16/17 History Cholecalciferol (Vitamin D3) 2,000 unit PO DAILY 07/27/16 05/16/17 History [Vitamin D3] Irbesartan 300 mg PO DAILY 07/27/16 05/16/17 History Magnesium Oxide [Magnesium] 400 mg PO BID 07/27/16 05/16/17 History NIFEdipine [Nifedipine ER] 30 mg PO DAILY 07/27/16 05/16/17 History Meloxicam [Mobic] 7.5 mg PO BID 05/04/17 05/16/17 History Vitamin E 400 unit PO DAILY 05/04/17 05/16/17 History Nitroglycerin Sl Tab [Nitrostat] 0.4 mg SL Q5M PRN #1 bottle 05/07/17 05/16/17 Rx Ticagrelor [Brilinta] 90 mg PO BID #60 tablet 05/07/17 05/16/17 Rx Cyanocobalamin Inj [Vitamin B12 1,000 mcg IM Q7DAY 05/16/17 05/16/17 History Inj] Folic Acid Tab 1 mg PO DAILY 05/16/17 05/16/17 History Lactobac No.41/Bifidobact No.7 70 mg PO BID 05/16/17 05/16/17 History [Probiotic-10 3 Billion Cell Cp] Thiamine HCl 100 mg PO DIRECTED 05/16/17 05/16/17 History Review of System - Review of System 12 point system: reviewed and no additional remarkable complaints except as stated - Review of System Constitutional: Present: as per HPI Respiratory: Present: as per HPI Cardiovascular: Present: as per HPI Gastrointestinal: Present: as per HPI Medical,Surgical,& Family Hx - Medical History Cardio: History of: Cerebrovascular Disease, Hypertension, Valvular Heart Disease (aortic insufficiency) Neurology: History of: Cerebrovascular Accident (had head injury at age 1 with stroke.) No history of: Seizures HEENT: History of: Eye Problem (cataracts) Endocrine: History of: Dyslipidemia Gastrointestinal: History of: Diverticulitis/ Diverticulosis, GERD (esophageal stricture), Ulcerative Colitis (has had in past), GI Problems (bryant's esophagus, hiatal hernia, colon polyps) Other: No history of: Anesthesia Reactions - Surgical History Neurologic Surgeries: Patient denies: Neurologic Surgery Abdominal Surgeries: Surgical HX of: Cholecystectomy Reproductive Surgeries: Surgical HX of;: Hysterectomy Orthopedic Surgeries: Surgical HX of;: Orthopedic Surgery (shoulder surgery), Total Knee Replacement (left) - Family History Family History: Denies;: Family Heart Disease - Social History Smoking Status: Never smoker Frequency of Alcohol Use: None Type of Drug Use: None Exam Physical Examination: GENERAL: Well developed, well nourished white female in no acute distress. HEENT: Normocephalic. No trauma. Moist mucous membranes. EOMI. PERRLA. ENT NML NECK: Supple. No adenopathy. CARDIAC: Regular. No murmurs. Heart rate 67 CHEST: Clear to auscultation. No respiratory distress. O2 sat 90% ABDOMEN: Soft. Nontender. Active bowel sounds. EXTREMITIES: No trauma. Normal ROM. No pedal edema. SKIN: No diaphoresis. No rash. NEURO: Alert. Neuro intact no focal deficits. Vital Signs: Vital Signs Temperature 97.9 F 05/16/17 22:52 Pulse Rate 70 05/16/17 22:52 Respiratory Rate 18 05/16/17 22:52 Blood Pressure 175/74 05/16/17 22:52 O2 Sat by Pulse Oximetry 98 05/16/17 22:35 Course - Reevaluation(s) Reevaluation #1: Patient states she has had slight improvement with treatment of reflux type symptoms but still heaviness. I have advised to she will be placed back in the hospital for further evaluation. - Consultations Consultation #1: Discussed with Dr. Marshall who will admit for Dr. Melendez. Results - Labs CBC & BMP: 05/16/17 23:18 05/16/17 23:18 Labs: I have reviewed the laboratory notice its normality including cardiac's and d- dimer. - Impressions EKG: Sinus at 67 with first-degree heart block and normal QRS duration. Nonspecific ST changes. No acute injury pattern noted. - Diagnostic Findings Procedure: Chest x-ray: image reviewed by me, report reviewed by me (No acute disease) Disposition Clinical Impression: Chest pain, Recent cardiac stenting Case discussed with: patient, patient's family Disposition: Still a Patient Condition: Guarded Time of Disposition: 00:32
[2017-05-16] MEDS ORDERED: METOCLOPRAMIDE 10 MG/2 ML VIAL ONE (23:06)
[2017-05-16] MEDS ORDERED: NITROGLYCERIN 2% OINT 1 INCH/GM PACK TOP ONE (23:06)
[2017-05-16] MEDS ORDERED: ASPIRIN 325 MG TABLET ONE (23:06)
[2017-05-16] MEDS ORDERED: PANTOPRAZOLE 40 MG VIAL IV ONE (23:06)
[2017-05-16 23:31] LABS: Basophils % 0.7 % (0.0-0.8); Eosinophils # 0.2 10*3/uL (0.0-0.87); Eosinophils % 2.7 % (0.00-10.9); Hematocrit 39.1 VOL% (35.7-47.0); Hemoglobin 13.6 GM/DL (12.0-16.0); Immature Granulocytes % 0.7 %; Immature Granulocytes Absolute 0.04 #; Lymphocytes # 1.8 10*3/uL (1.4-4.0); Lymphocytes % 30.1 % (21.3-54.2); Mean Corpuscular HGB Conc 34.8 GM/DL (32-36); Mean Corpuscular Hemoglobin 31 PG (27-34); Mean Corpuscular Volume 90.1 FL (87-102); Mean Platelet Volume 10.6 FL (9.6-12.0); Monocytes # 1.1 10*3/uL (0.11-0.8); Monocytes % 19.4 % (1.7-12.7); Neutrophils # 2.7 10*3/uL (1.4-7.4); Neutrophils % 46.4 % (38.7-73.9); Platelet Count 238 T/CUMM (130-400); Red Blood Count 4.34 MC/CUMM (3.8-5.5); Red Cell Distribution Width 12.3 % (9.3-17.3); White Blood Count 5.9 T/CUMM (4-12)
[2017-05-16 23:43] LABS: D-Dimer <= 0.5 MG/L FEU; PT Patient Result 10.2 SECS; Partial Thromboplastin Time 25.2 SECS (0-40)
[2017-05-16 23:59] LABS: Albumin 4.2 G/DL (3.4-5.0); Bilirubin,Total 0.6 MG/DL (0.2-1.0); Calcium 8.6 MG/DL (8.5-10.1); Osmolality,Calculated 283.1 MOS/KG (273-304); Potassium 4.1 MMOL/L (3.5-5.1)
[2017-05-17 00:01] LABS: Troponin I Only < 0.015 NG/ML (0.00-0.045)
[2017-05-17] MEDS ORDERED: ONDANSETRON 4 MG/2 ML VIAL IV PRN (00:34)
[2017-05-17 00:56] LABS: Eosinophils 4 % (0-10); Lymphocytes 30 % (20-55); Myelocytes 1 %; Segmented Neutrophils 45 % (50-85)
[2017-05-17 00:58] LABS: Platelet Estimate Normal; Total Cells Counted 100
[2017-05-17 01:23] LABS: Thyroid Stimulating Hormone 2.45 uIU/ml (0.358-3.74)
[2017-05-17 05:57] LABS: Troponin I Only < 0.015 NG/ML (0.00-0.045)
--- NOTE | 2017-05-17 06:02 | EKG Report ---
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
--- NOTE | 2017-05-17 06:02 | XRay Report ---
Exam: XR chest 1V portable Date: 05/16/2017 10:53 PM Indication: Chest pain Comparison: 05/04/2017 Technical: AP portable Findings: External cardiac leads are present. Lateral marginal osteophytes are present. The heart is at upper limits of normal. No obvious infiltrate or effusion. Mediastinum is intact. Impression: 1. No acute cardiopulmonary pathology 2. Degenerative spondylosis change thoracic spine PROCEDURE INTERPRETED AT [facility] DEPARTMENT OF RADIOLOGY Final Report Signed by: Dr. Tan Felder
[2017-05-17] MEDS ORDERED: THYROID 60 MG TABLET PO SCH (07:00)
--- NOTE | 2017-05-17 07:47 | EKG Report ---
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
--- NOTE | 2017-05-17 08:27 | Cardiology History & Physical ---
<Jenny Duffy - Last Filed: 05/17/17 08:29> Assessment and Plan - Time spent with patient Time spent with patient: Greater than 30 minutes (1) Atypical chest pain Status: Acute Assessment and plan: SEE PLAN OF CARE LISTED BELOW Current Visit: Yes (2) Status post insertion of drug-eluting stent into right coronary artery for coronary artery disease Status: Chronic Assessment and plan: EE PLAN OF CARE LISTED BELOW Current Visit: No (3) Dyslipidemia Status: Chronic Assessment and plan: EE PLAN OF CARE LISTED BELOW Current Visit: No (4) GERD (gastroesophageal reflux disease) Status: Chronic Assessment and plan: EE PLAN OF CARE LISTED BELOW Current Visit: No (5) Hypertension Status: Chronic Current Visit: No (6) Obesity Status: Chronic Current Visit: No History of Present Illness Chief complaint: Chest pain, status post PCI to RCA May 06, 2070 History of present illness: 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 Mcclelland is a 67 year old female patient with known history of coronary artery disease, routinely followed by Dr. Melendez. She has cardiac risk factors significant for known documented coronary artery disease, hypertension, dyslipidemia, advanced age, sedentary lifestyle and obesity. Patient is a lifetime non-smoker. She has no significant family history of coronary artery disease. She has a past medical history of aortic valve insufficiency, hypothyroidism, Bryant's esophagus with esophagitis, diverticulosis, esophageal stricture and GERD. Patient's most recent echocardiogram was performed August 2016 which revealed left ventricular ejection fraction of 60% . Trace TR, trace pulmonic regurgitation, trace aortic regurgitation and trace MR also noted. Patient underwent cardiac stress testing August 2016 which did not reveal any reversible ischemia and was low risk for future cardiac events. Patient was just recently discharged from [facility] May 07, 2017. She had a heart catheterization May 06, [address] Melendez with the following impressions noted: IMPRESSION: 1. Successful percutaneous coronary intervention to the right coronary artery with 2 3.25 x 15 mm Xience alpine drug-eluting stents placed in an overlapping fashion in the proximal to mid and mid right coronary arteries. 2. Preserved left ventricular systolic function. 3. Normal left ventricular end-diastolic pressure. 4. Mild nonobstructive coronary artery disease in the left coronary artery system. Patient reports that she already has an appointment scheduled for Saturday, May for labs. She is due to follow up with Dr. Melendez May 22 for her appointment. Patient presented to [facility] with complaints of midsternal chest pressure. She reports that her chest pressure is very similar to the discomfort that she experienced prior to undergoing heart catheterization. Nonradiating. She tells me that this began a few days after being discharged home. Associated with mild shortness of breath. She denies nausea, diaphoresis, palpitations and heart racing. She rates her pain a 6 or 7 on a scale of 1-10. She is unable to identify any specific alleviating or aggravating factors. The discomfort has been coming and going without any specific triggers. She tells me that there is no exertional component noted to her chest discomfort. Patient does have a history of GERD. She tells me that it is not specifically worse after large meals or while lying flat. Not worsened with deep breathing or cough. Midsternal chest is not tender to palpation and her pain is not reproducible. Due to her ongoing chest discomfort , she decided that she should be further evaluated in the emergency department. On arrival to the emergency department, she received nitroglycerin. She reports that this has not lessened or relieved her chest discomfort. Patient has been admitted to the cardiology's service and housed in the telemetry unit. Of note, patient reports being extremely compliant with her dual antiplatelet therapy. Patient was seen and examined on the telemetry unit. She is currently without chest pain, heaviness and tightness. However, she does report that she has been experiencing discomfort on and off throughout her hospitalization. Cardiac biomarkers have been negative 2. EKG does not reveal any acute ST changes. Patient chest pain is atypical in nature. However, she does report that it is very similar to the pain she experienced prior to having coronary stents placed to her RCA. Cardiac biomarkers have been negative thus far and EKG is unchanged from previous admissions. Just recently underwent heart catheterization May 06, [address] Melendez and received PCI 2 to RCA. She also was noted to have mild nonobstructive coronary artery disease in the left coronary artery system. Patient is apprehensive to undergo stress testing again as she underwent cardiac stress testing August 2016 which was normal. However, heart catheterization in April 2017 did in fact reveal coronary artery disease requiring stent placement. After discussing with Dr. Cordero, it was decided that patient will most benefit from heart catheterization in order to definitively rule out restenosis of the RCA stent and to give patient a peace of mind. Will further discuss with Dr. Cordero and await his additional recommendations. ASSESSMENT/PLAN: 1. ATYPICAL CHEST PAIN - Patient chest pain is atypical in nature. However, she does report that it is very similar to the pain she experienced prior to having coronary stents placed to her RCA. Cardiac biomarkers have been negative thus far and EKG is unchanged from previous admissions. Just recently underwent heart catheterization May 06, [address] Melendez and received PCI 2 to RCA. She also was noted to have mild nonobstructive coronary artery disease in the left coronary artery system. Patient is apprehensive to undergo stress testing again as she underwent cardiac stress testing August 2016 which was normal. However, heart catheterization in April 2017 did in fact reveal coronary artery disease requiring stent placement. After ` discussing with Dr. Cordero, it was decided that patient will most benefit from heart catheterization in order to definitively rule out restenosis of the RCA stent and to give patient a peace of mind. Will further discuss with Dr. Cordero and await his additional recommendations. 2. CORONARY ARTERY DISEASE, STATUS POST PCI TO RCA - Patient is status post PCI 2 to RCA May 06, 2017. Patient reports that she has been compliant with her dual antiplatelet therapy along with beta-daniel and lipid-lowering agent. 3. HYPERTENSION - Patient's home medications have been reinitiated. We will monitor her blood pressure and adjust these medications as needed throughout her hospitalization. 4. DYSLIPIDEMIA - Continue lipid-lowering agent. Will check lipid panel. 5. GERD - Continue PPI. 6. OBESITY - Weight loss encouraged. Home Medications Medication Instructions Recorded Confirmed Type Aspirin EC Tab 81 mg PO QPM 02/25/15 05/16/17 History Cranberry 500 mg PO BID 02/25/15 05/16/17 History Omeprazole [Prilosec] 20 mg PO DAILY 02/25/15 05/16/17 History Selenium 200 mcg PO DAILY 02/25/15 05/16/17 History Thyroid [Kent Thyroid] 30 mg PO DAILY 02/25/15 05/16/17 History Atorvastatin [Lipitor] 40 mg PO DAILY 07/27/16 05/16/17 History Carvedilol 25 mg PO BID 07/27/16 05/16/17 History Cholecalciferol (Vitamin D3) 2,000 unit PO DAILY 07/27/16 05/16/17 History [Vitamin D3] Irbesartan 300 mg PO DAILY 07/27/16 05/16/17 History Magnesium Oxide [Magnesium] 400 mg PO BID 07/27/16 05/16/17 History NIFEdipine [Nifedipine ER] 30 mg PO DAILY 07/27/16 05/16/17 History Meloxicam [Mobic] 7.5 mg PO BID 05/04/17 05/16/17 History Vitamin E 400 unit PO DAILY 05/04/17 05/16/17 History Nitroglycerin Sl Tab [Nitrostat] 0.4 mg SL Q5M PRN #1 bottle 05/07/17 05/16/17 Rx Ticagrelor [Brilinta] 90 mg PO BID #60 tablet 05/07/17 05/16/17 Rx Cyanocobalamin Inj [Vitamin B12 1,000 mcg IM Q7DAY 05/16/17 05/16/17 History Inj] Folic Acid Tab 1 mg PO DAILY 05/16/17 05/16/17 History Lactobac No.41/Bifidobact No.7 70 mg PO BID 05/16/17 05/16/17 History [Probiotic-10 3 Billion Cell Cp] Thiamine HCl 100 mg PO DIRECTED 05/16/17 05/16/17 History Allergies Allergy/AdvReac Type Severity Reaction Status Date / Time codeine Allergy HIVES Verified 05/04/17 11:44 - Constitutional Constitutional: Absent: chills, fatigue, fever(s), frequent falls, headache(s), weakness, weight gain, weight loss - Cardiovascular Cardiovascular: Present: as per HPI, chest pain at rest, dyspnea. Absent: claudication, diaphoresis, dyspnea on exertion, edema, radiating jaw, neck or arm pain, lightheadedness, orthopnea, palpitations, PND - Respiratory Respiratory: Present: dyspnea. Absent: cough, hemoptysis, dyspnea on exertion, wheezing, snoring, pain on inspiration, change in phlegm color - Gastrointestinal Gastrointestinal: Absent: abdominal pain, change in bowel habits, coffee ground emesis, constipation, melena, nausea, vomiting - Neurological Neurological: Absent: abnormal gait, abnormal speech, behavioral changes, dizziness, frequent falls, paresthesias, syncope Medical,Surgical,& Family Hx - Medical History Cardio: History of: CAD, Hypertension, Valvular Heart Disease (aortic insufficiency) HEENT: History of: Eye Problem (cataracts) Endocrine: History of: Dyslipidemia Gastrointestinal: History of: Diverticulitis/ Diverticulosis, GERD (esophageal stricture), Ulcerative Colitis (has had in past), GI Problems (bryant's esophagus, hiatal hernia, colon polyps) Other: No history of: Anesthesia Reactions - Surgical History Cardiac Surgeries: Sugical HX of: Cardiac Catheterization Thoracic Surgeries: Patient denies;: Organ Transplant, Lobectomy Neurologic Surgeries: Patient denies: Neurologic Surgery Abdominal Surgeries: Surgical HX of: Cholecystectomy Reproductive Surgeries: Surgical HX of;: Hysterectomy Patient denies;: Genitourinary Surgery, Gynecologic Surgery Orthopedic Surgeries: Surgical HX of;: Orthopedic Surgery (shoulder surgery), Total Knee Replacement (left) - Family History Family History: Denies;: Family Heart Disease - Social History Smoking Status: Never smoker Frequency of Alcohol Use: None Type of Drug Use: None Marital Status: Lives With:: Spouse Functional capacity: independent ambulation Cardiology Physical Exam - Constitutional Vitals: Vital Signs Temp Pulse Resp BP Pulse Ox 97.2 F L 65 16 146/74 97 05/17/17 08:00 05/17/17 08:00 05/17/17 06:20 05/17/17 08:00 05/17/17 01:11 Intake and Output 05/16/17 05/17/17 05/17/17 22:59 06:59 14:59 Other: Voiding Method Toilet # Voids 1 Weight 180 lb Exam: General: Appears well with no apparent distress. Pleasant and cooperative. Appears comfortable. HEENT: PERRL, normocephalic, atraumatic. Mucous membranes moist. No jaundice noted. Conjunctiva moist and clear, sclerae anicteric Neck: No JVD/HJR, no thyromegaly or lymphadenopathy noted. No carotid bruit appreciated Cardiac: Regular rate and rhythm. No murmur rub or gallop. Lungs: Clear to auscultation without accessory muscle use to assist the respiratory pattern. Not requiring oxygen. Abdomen: Soft, bowel sounds normoactive. Nontender and nondistended. No abdominal bruit or thrill noted. No masses noted. Extremities: No clubbing, cyanosis noted. No edema noted. Upper extremity pulses 2+. Lower extremity pulses 2+. Capillary refill less than 3 seconds. Cath site to right wrist is stable without hematoma or bruit. Right radial pulse 2+. Skin: No unusual lesions or rashes. No skin breakdown appreciated. Neuro: Awake, alert and oriented 3. Moves all extremities well without hemiparesis or paralysis. No essential tremor is appreciated. Result/EKG - Labs CBC & BMP: 05/16/17 23:18 05/16/17 23:18 Lab Results: I have reviewed the past 24 hour labs Labs: Laboratory Results - last 24 hr 05/16/17 05/16/17 05/16/17 23:18 23:18 23:18 WBC 5.9 RBC 4.34 Hgb 13.6 Hct 39.1 MCV 90.1 MCH 31 MCHC 34.8 RDW 12.3 Plt Count 238 MPV 10.6 Neut % (Auto) 46.4 Lymph % (Auto) 30.1 [place] % (Auto) 19.4 H Eos % (Auto) 2.7 Baso % (Auto) 0.7 Neut # (Auto) 2.7 Lymph # (Auto) 1.8 [place] # (Auto) 1.1 H Eos # (Auto) 0.2 Baso # (Auto) 0.0 Total Counted 100 Immature Gran % 0.7 Nucleated RBC % 0.0 Immature Gran # 0.04 Segmented Neutrophils 45 L Lymphocytes 30 Monocytes 18 H Eosinophils 4 Basophils 2.0 H Myelocytes 1 Nucleated RBCs # 0.00 Platelet Estimate Normal INR 1.0 PT Patient/Control Mix 10.2 D-Dimer, Quantitative <= 0.5 Circ Anticoag PTT 25.2 Sodium 142 Potassium 4.1 Chloride 105 Carbon Dioxide 28 Anion Gap 13.1 BUN 14 Creatinine 0.90 GFR Calculation 71 BUN/Creatinine Ratio 15.00 Glucose 106 Calculated Osmolality 283.1 Calcium 8.6 Total Bilirubin 0.60 AST 23 ALT 49 Alkaline Phosphatase 102 Total Creatine Kinase CK-MB (CK-2) Troponin I Total Protein 7.0 Albumin 4.2 Globulin 2.8 Albumin/Globulin Ratio 1.5 Free T4 TSH 3rd Generation 05/16/17 05/17/17 05/17/17 23:18 00:00 02:46 WBC RBC Hgb Hct MCV MCH MCHC RDW Plt Count MPV Neut % (Auto) Lymph % (Auto) [place] % (Auto) Eos % (Auto) Baso % (Auto) Neut # (Auto) Lymph # (Auto) [place] # (Auto) Eos # (Auto) Baso # (Auto) Total Counted Immature Gran % Nucleated RBC % Immature Gran # Segmented Neutrophils Lymphocytes Monocytes Eosinophils Basophils Myelocytes Nucleated RBCs # Platelet Estimate INR PT Patient/Control Mix D-Dimer, Quantitative Circ Anticoag PTT Sodium Potassium Chloride Carbon Dioxide Anion Gap BUN Creatinine GFR Calculation BUN/Creatinine Ratio Glucose Calculated Osmolality Calcium Total Bilirubin AST ALT Alkaline Phosphatase Total Creatine Kinase 97 CK-MB (CK-2) < 1.0 Troponin I < 0.015 < 0.015 Total Protein Albumin Globulin Albumin/Globulin Ratio Free T4 1.00 TSH 3rd Generation 2.450 05/17/17 05/17/17 04:44 04:44 WBC RBC Hgb Hct MCV MCH MCHC RDW Plt Count MPV Neut % (Auto) Lymph % (Auto) [place] % (Auto) Eos % (Auto) Baso % (Auto) Neut # (Auto) Lymph # (Auto) [place] # (Auto) Eos # (Auto) Baso # (Auto) Total Counted Immature Gran % Nucleated RBC % Immature Gran # Segmented Neutrophils Lymphocytes Monocytes Eosinophils Basophils Myelocytes Nucleated RBCs # Platelet Estimate INR PT Patient/Control Mix D-Dimer, Quantitative Circ Anticoag PTT Sodium Potassium Chloride Carbon Dioxide Anion Gap BUN Creatinine GFR Calculation BUN/Creatinine Ratio Glucose Calculated Osmolality Calcium Total Bilirubin AST ALT Alkaline Phosphatase Total Creatine Kinase 84 CK-MB (CK-2) < 1.0 Troponin I < 0.015 < 0.015 Total Protein Albumin Globulin Albumin/Globulin Ratio Free T4 TSH 3rd Generation - EKG EKG results: interpreted by me, sinus rhythm <Lefty Cordero - Last Filed: 05/17/17 09:12> History of Present Illness History of present illness: Cardiology addendum Status post RCA stent 2 from the right radial approach May 06, 2017. Left system had mild disease only. Recurrent atypical chest pain and dyspnea. Patient states she has the same symptoms that she had before the procedure. She had a normal nuclear stress test October 2016. She has no confidence in stress testing and is apprehensive. Troponins are negative. EKG benign. Plan Cardiac cath today Normal saline hydration Cardiology Physical Exam - Constitutional Vitals: Vital Signs Temp Pulse Resp BP Pulse Ox 97.2 F L 65 16 146/74 97 05/17/17 08:00 05/17/17 08:00 05/17/17 06:20 05/17/17 08:00 05/17/17 01:11 Intake and Output 05/16/17 05/17/1717 23:59 07:59 15:59 Other: Voiding Method Toilet # Voids 1 Weight 81.647 kg Result/EKG - Labs CBC & BMP: 05/16/17 23:18 05/16/17 23:18 Labs: Laboratory Results - last 24 hr 05/16/17 05/16/17 05/16/17 23:18 23:18 23:18 WBC 5.9 RBC 4.34 Hgb 13.6 Hct 39.1 MCV 90.1 MCH 31 MCHC 34.8 RDW 12.3 Plt Count 238 MPV 10.6 Neut % (Auto) 46.4 Lymph % (Auto) 30.1 [place] % (Auto) 19.4 H Eos % (Auto) 2.7 Baso % (Auto) 0.7 Neut # (Auto) 2.7 Lymph # (Auto) 1.8 [place] # (Auto) 1.1 H Eos # (Auto) 0.2 Baso # (Auto) 0.0 Total Counted 100 Immature Gran % 0.7 Nucleated RBC % 0.0 Immature Gran # 0.04 Segmented Neutrophils 45 L Lymphocytes 30 Monocytes 18 H Eosinophils 4 Basophils 2.0 H Myelocytes 1 Nucleated RBCs # 0.00 Platelet Estimate Normal INR 1.0 PT Patient/Control Mix 10.2 D-Dimer, Quantitative <= 0.5 Circ Anticoag PTT 25.2 Sodium 142 Potassium 4.1 Chloride 105 Carbon Dioxide 28 Anion Gap 13.1 BUN 14 Creatinine 0.90 GFR Calculation 71 BUN/Creatinine Ratio 15.00 Glucose 106 Calculated Osmolality 283.1 Calcium 8.6 Total Bilirubin 0.60 AST 23 ALT 49 Alkaline Phosphatase 102 Total Creatine Kinase CK-MB (CK-2) Troponin I Total Protein 7.0 Albumin 4.2 Globulin 2.8 Albumin/Globulin Ratio 1.5 Triglycerides Cholesterol LDL Cholesterol VLDL Cholesterol HDL Cholesterol Heart Disease Risk Ratio Free T4 TSH 3rd Generation 05/16/17 05/17/17 05/17/17 23:18 00:00 02:46 WBC RBC Hgb Hct MCV MCH MCHC RDW Plt Count MPV Neut % (Auto) Lymph % (Auto) [place] % (Auto) Eos % (Auto) Baso % (Auto) Neut # (Auto) Lymph # (Auto) [place] # (Auto) Eos # (Auto) Baso # (Auto) Total Counted Immature Gran % Nucleated RBC % Immature Gran # Segmented Neutrophils Lymphocytes Monocytes Eosinophils Basophils Myelocytes Nucleated RBCs # Platelet Estimate INR PT Patient/Control Mix D-Dimer, Quantitative Circ Anticoag PTT Sodium Potassium Chloride Carbon Dioxide Anion Gap BUN Creatinine GFR Calculation BUN/Creatinine Ratio Glucose Calculated Osmolality Calcium Total Bilirubin AST ALT Alkaline Phosphatase Total Creatine Kinase 97 CK-MB (CK-2) < 1.0 Troponin I < 0.015 < 0.015 Total Protein Albumin Globulin Albumin/Globulin Ratio Triglycerides Cholesterol LDL Cholesterol VLDL Cholesterol HDL Cholesterol Heart Disease Risk Ratio Free T4 1.00 TSH 3rd Generation 2.450 05/17/17 05/17/17 05/17/17 04:43 04:44 04:44 WBC RBC Hgb Hct MCV MCH MCHC RDW Plt Count MPV Neut % (Auto) Lymph % (Auto) [place] % (Auto) Eos % (Auto) Baso % (Auto) Neut # (Auto) Lymph # (Auto) [place] # (Auto) Eos # (Auto) Baso # (Auto) Total Counted Immature Gran % Nucleated RBC % Immature Gran # Segmented Neutrophils Lymphocytes Monocytes Eosinophils Basophils Myelocytes Nucleated RBCs # Platelet Estimate INR PT Patient/Control Mix D-Dimer, Quantitative Circ Anticoag PTT Sodium Potassium Chloride Carbon Dioxide Anion Gap BUN Creatinine GFR Calculation BUN/Creatinine Ratio Glucose Calculated Osmolality Calcium Total Bilirubin AST ALT Alkaline Phosphatase Total Creatine Kinase 84 CK-MB (CK-2) < 1.0 Troponin I < 0.015 < 0.015 Total Protein Albumin Globulin Albumin/Globulin Ratio Triglycerides 73 Cholesterol 101 LDL Cholesterol 52.0 VLDL Cholesterol 14.6 HDL Cholesterol 47 Heart Disease Risk Ratio 2.15 Free T4 TSH 3rd Generation
[2017-05-17 08:50] LABS: Risk Ratio 2.15; VLDL CHOLESTEROL 14.6 MG/DL
[2017-05-17] MEDS ORDERED: VITAMIN E 400 UNIT CAPSULE PO SCH (09:00)
[2017-05-17] MEDS ORDERED: PANTOPRAZOLE 40 MG TABLET PO SCH (09:00)
[2017-05-17] MEDS ORDERED: MAGNESIUM OXIDE 400 MG TABLET PO SCH (09:00)
[2017-05-17] MEDS ORDERED: CHOLECALCIFEROL 1,000 UNIT TABLET PO SCH (09:00)
[2017-05-17] MEDS ORDERED: ASPIRIN 325 MG TABLET PO SCH (09:00)
[2017-05-17] MEDS ORDERED: CARVEDILOL 25 MG TABLET PO SCH (09:00)
[2017-05-17] MEDS ORDERED: LACTOBACILLUS ACIDOPHILUS/BULGARICUS CAPLET PO SCH (09:00)
[2017-05-17] MEDS ORDERED: CRANBERRY 500 MG PO SCH (09:00)
[2017-05-17] MEDS ORDERED: IRBESARTAN 150 MG TABLET PO SCH (09:00)
[2017-05-17] MEDS ORDERED: MELOXICAM 7.5 MG TABLET PO SCH (09:00)
[2017-05-17] MEDS ORDERED: TICAGRELOR 90 MG TABLET PO SCH (09:00)
[2017-05-17] MEDS ORDERED: SELENIUM 200 MCG TABLET PO SCH (09:00)
[2017-05-17] MEDS ORDERED: THIAMINE 100 MG TABLET PO SCH (09:00)
[2017-05-17] MEDS ORDERED: CLOPIDOGREL 75 MG TABLET PO SCH (09:00)
[2017-05-17] MEDS ORDERED: FOLIC ACID 1 MG TABLET PO SCH (09:00)
[2017-05-17] MEDS ORDERED: CYANOCOBALAMIN 1000 MCG/1 ML VIAL IM SCH (09:00)
[2017-05-17] MEDS ORDERED: POTASSIUM CHLORIDE RIDER 10 MEQ in PREMIX 1 EACH IV PRN (09:49)
[2017-05-17] MEDS ORDERED: MAGNESIUM SULF RIDER 2 GM in PREMIX 1 EACH IV PRN (09:49)
[2017-05-17] MEDS ORDERED: SODIUM CHLORIDE 0.45% 1,000 ML IV SCH (10:00)
[2017-05-17 10:34] LABS: PT Patient Result 10.7 SECS
[2017-05-17] MEDS ORDERED: LIDOCAINE 1% 20 ML VIAL ONE (11:56)
[2017-05-17] MEDS ORDERED: HEPARIN/NACL 0.9% 2 UNITS/ML 1,000 ML IV ONE (11:56)
[2017-05-17] MEDS ORDERED: DIAZEPAM 5 MG TABLET PO ONE (12:00)
[2017-05-17] MEDS ORDERED: diphenhydrAMINE CAP 25 MG CAPSULE PO ONE (12:00)
[2017-05-17] MEDS ORDERED: NITROGLYCERIN DRIP 50 MG/250 ML BOTTLE IV ONE (12:18)
[2017-05-17] MEDS ORDERED: HYDROmorphone 2 MG/1 ML VIAL ONE (12:18)
[2017-05-17] MEDS ORDERED: VERAPAMIL 5 MG/2 ML VIAL ONE (12:21)
[2017-05-17] MEDS ORDERED: MIDAZOLAM 2 MG/2 ML VIAL ONE (12:21)
[2017-05-17] MEDS ORDERED: ASPIRIN 325 MG TABLET ONE (12:28)
[2017-05-17] MEDS ORDERED: ENOXAPARIN 30 MG/0.3 ML SYRINGE ONE (12:32)
--- NOTE | 2017-05-17 12:46 | Cardiac Catheterization ---
Date of Procedure:: 05/17/17 Procedure: CLINICAL HISTORY: Please see the history and physical. The patient had recent stenting of her right coronary artery and presented to the hospital with chest pain symptoms. She is undergoing cardiac catheterization for definitive coronary artery assessment to make sure there are no problems with the previously placed stent and no new obstructive disease. PROCEDURES PERFORMED: 1. Right radial percutaneous arteriotomy 2. Left heart catheterization 3. Resting hemodynamics 4. Left ventriculography. 5. Coronary arteriography 6. 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 We accessed the right radial artery using modified Seldinger technique in the usual fashion. We placed a 6-Al[place] slim sheath without difficulty. We then used a Tig catheter to engage the right coronary and left main coronary arteries to perform angiography in multiple orthogonal views. There were no problems or complications during the procedure. We then used an angled pigtail catheter to perform a left heart catheterization with left ventriculogram and pressure measurement in the usual fashion. After removing the catheter, we placed a HemoBand and removed the sheath without difficulty. There were no problems during the case. HEMODYNAMICS: Please see the accompanying data sheet. CORONARIES: The left main coronary artery is moderate to large caliber vessel which bifurcates into the left anterior descending and left circumflex coronary arteries. There is an ostial 30% stenosis of the left main coronary artery. The left circumflex coronary artery is a moderate-sized vessel which gives off 2 moderate-sized obtuse marginal branches. There are diffuse luminal irregularities of up to 30 for 40% in the circumflex system but no significant focal obstruction is seen. The left anterior descending is a moderate-sized vessel which gives off a moderate-sized first diagonal branch. There is some diffuse luminal disease of up to 30-40% in the left anterior descending coronary artery but no significant focal obstruction is seen. The right coronary artery is a large-caliber vessel which gives of the posterior descending artery and it extensive posterior lateral system. There is a long area of stented vessel in the proximal to mid right coronary artery which is widely patent. I do not see any evidence of complication at the stented site or restenosis, and I do not see any significant obstructive disease elsewhere in this vessel. LEFT VENTRICULOGRAPHY: Left ventriculogram shows left ventricular ejection fraction of approximately >70% with normal regional wall motion. IMPRESSION: 1. The previously placed right coronary artery stents are widely patent. 2. There is stable mild nonobstructive disease in the left coronary system. 3. There is normal left ventricular systolic function. PLAN: I do not see any significant obstructive disease on cardiac catheterization. The previously placed stents are widely patent. Left ventricular ejection fraction is normal. I think we will continue medical management/risk factor modification. Based on the results of her catheterization, normal cardiac enzymes, and benign-appearing EKG, it is likely that her presenting chest pains were noncardiac in nature. Anesthesia: minimal conscious sedation Surgeon / Physician: Conrad Melendez Estimated blood loss: minimal Condition: stable Disposition: floor - Medications / Follow-up
--- NOTE | 2017-05-17 15:14 | Discharge Summary ---
Hospital Course - Hospital Course Hospital Course: [employer] Assembler: Dr. Conrad Melendez Ms. Mcclelland is a 67 year old female patient with known history of coronary artery disease, routinely followed by Dr. Melendez. She has past medical history of known documented coronary artery disease, hypertension, dyslipidemia, aortic valve insufficiency, hypothyroidism, Camilo's esophagus with esophagitis, diverticulosis, esophageal stricture and GERD. Patient was just recently discharged from [facility] May 07, 2017. She had a heart catheterization May 06, [address] Melendez and is status post PCI 2 to right coronary artery. Mild nonobstructive coronary artery disease was also noted in the left coronary artery system. She presented to the emergency department with recurrent chest pain May 16, 2017. Subsequently, she underwent a repeat heart catheterization in order to definitively rule out restenosis of her RCA stent. She underwent left heart catheterization May 17, [address] Conrad Melendez with the following impressions noted: IMPRESSION: 1. The previously placed right coronary artery stents are widely patent. 2. There is stable mild nonobstructive disease in the left coronary system. 3. There is normal left ventricular systolic function. Ejection fraction of greater than 70% with normal regional wall motion. Post heart catheterization, patient was transported back to the telemetry unit in stable condition. Cardiac catheterization revealed widely patent stent coronary stent. Normal left ventricular ejection fraction. At this point, we will continue medical management/risk factor modification. Her presenting chest pains does not appear to be cardiac in nature. We will increase her omeprazole at discharge. Patient's right radial cath site is stable without bleeding or hematoma. Right radial pulse 2+. Patient already has appointment scheduled with Dr. Melendez on May 22. She will keep this appointment. Patient will be discharged home on her preadmission medications with the exception of an increased dose of her omeprazole. She is anxious for discharge home. Having felt that she has met maximal medical therapy, she will be discharged home in stable condition. Patient will keep her follow-up with Dr. Melendez May 22. Patient verbalizes understanding of discharge instructions and discharge medications. - Time spent with patient Time with patient DS: Greater than 30 minutes Diagnosis - Discharge Diagnosis (1) Non-cardiac chest pain Status: Resolved (2) Status post insertion of drug-eluting stent into right coronary artery for coronary artery disease Status: Chronic (3) Dyslipidemia Status: Chronic (4) GERD (gastroesophageal reflux disease) Status: Chronic (5) Hypertension Status: Chronic (6) Obesity Status: Chronic Discharge Plan - Discharge Data Disposition: Disch To Home/Self Care Condition at Discharge: Stable Discharge Diet: heart healthy Activity: resume usual activities as tolerated Hygiene: may shower Weight Bearing at Discharge: weight bear as tolerated Driving: no restrictions Contact your physician if you experience:: fever over 101, Difficulty voiding, Redness or swelling, Nausea/Vomiting, Shortness of breath, Bleeding, pain uncontrolled by pain medications - Discharge Medications New Omeprazole [Prilosec] 20 mg PO BID #60 capsule Continue Aspirin EC Tab 81 mg PO QPM Thyroid [[place] Thyroid] 30 mg PO DAILY Cranberry 500 mg PO BID Selenium 200 mcg PO DAILY Atorvastatin [Lipitor] 40 mg PO DAILY Magnesium Oxide [Magnesium] 400 mg PO BID Cholecalciferol (Vitamin D3) [Vitamin D3] 2,000 unit PO DAILY NIFEdipine [Nifedipine ER] 30 mg PO DAILY Irbesartan 300 mg PO DAILY Carvedilol 25 mg PO BID Meloxicam [Mobic] 7.5 mg PO BID Vitamin E 400 unit PO DAILY Cyanocobalamin Inj [Vitamin B12 Inj] 1,000 mcg IM Q7DAY Nitroglycerin Sl Tab [Nitrostat] 0.4 mg SL Q5M PRN #1 bottle PRN Reason: Chest Pain Ticagrelor [Brilinta] 90 mg PO BID #60 tablet Thiamine HCl 100 mg PO DIRECTED Lactobac No.41/Bifidobact No.7 [Probiotic-10 3 Billion Cell Cp] 70 mg PO BID Folic Acid Tab 1 mg PO DAILY Discontinued Omeprazole [Prilosec] 20 mg PO DAILY - Follow Up or Referral - Forms/Instructions Exam - Constitutional Vitals: Period Temp Pulse Resp BP Sys/[place] Pulse Ox Last 24 Hr 96.9 F-98.2 F 65-74 16-20 124-175/59-82 97-98 Exam: General: Appears well with no apparent distress. Pleasant and cooperative. Appears comfortable. HEENT: PERRL, normocephalic, atraumatic. Mucous membranes moist. No jaundice noted. Conjunctiva moist and clear, sclerae anicteric Neck: No JVD/HJR, no thyromegaly or lymphadenopathy noted. No carotid bruit appreciated Cardiac: Regular rate and rhythm. No murmur rub or gallop. Lungs: Clear to auscultation without accessory muscle use to assist the respiratory pattern. Not requiring oxygen. Abdomen: Soft, bowel sounds normoactive. Nontender and nondistended. No abdominal bruit or thrill noted. No masses noted. Extremities: No clubbing, cyanosis noted. No edema noted. Upper extremity pulses 2+. Lower extremity pulses 2+. Capillary refill less than 3 seconds. Right wrist is stable without bleeding, hematoma and bruit. Right radial pulse 2+. Skin: No unusual lesions or rashes. No skin breakdown appreciated. Neuro: Awake, alert and oriented 3. Moves all extremities well without hemiparesis or paralysis. No essential tremor is appreciated. Discharge Results Procedures and tests throughout hospitalization: Pending Orders 05/17/17 09:45 CL heart Routine 05/18/17 04:00 BMP w/ Mg [Basic Metabolic Panel w/Mg] IN AM Basic Metabolic Panel IN AM Comp Blood Count Auto Diff IN AM Magnesium IN AM 05/19/17 04:00 BMP w/ Mg [Basic Metabolic Panel w/Mg] IN AM CBC [Comp Blood Count Auto Diff] IN AM 05/20/17 04:00 BMP w/ Mg [Basic Metabolic Panel w/Mg] IN AM CBC [Comp Blood Count Auto Diff] IN AM Labs on day of discharge: Labs from last 24 hours 05/17/17 05/17/17 05/17/17 09:56 04:44 04:44 WBC RBC Hgb Hct MCV MCH MCHC RDW Plt Count MPV Neut % (Auto) Lymph % (Auto) Phelps % (Auto) Eos % (Auto) Baso % (Auto) Neut # (Auto) Lymph # (Auto) Phelps # (Auto) Eos # (Auto) Baso # (Auto) Total Counted Immature Gran % Nucleated RBC % Immature Gran # Segmented Neutrophils Lymphocytes Monocytes Eosinophils Basophils Myelocytes Nucleated RBCs # Platelet Estimate INR 1.0 PT Patient/Control Mix 10.7 D-Dimer, Quantitative Circ Anticoag PTT Sodium Potassium Chloride Carbon Dioxide Anion Gap BUN Creatinine GFR Calculation BUN/Creatinine Ratio Glucose Calculated Osmolality Calcium Total Bilirubin AST ALT Alkaline Phosphatase Total Creatine Kinase 84 CK-MB (CK-2) < 1.0 Troponin I < 0.015 < 0.015 Total Protein Albumin Globulin Albumin/Globulin Ratio Triglycerides Cholesterol LDL Cholesterol VLDL Cholesterol HDL Cholesterol Heart Disease Risk Ratio Free T4 TSH 3rd Generation 05/17/17 05/17/17 05/17/17 04:43 02:46 00:00 WBC RBC Hgb Hct MCV MCH MCHC RDW Plt Count MPV Neut % (Auto) Lymph % (Auto) Phelps % (Auto) Eos % (Auto) Baso % (Auto) Neut # (Auto) Lymph # (Auto) Phelps # (Auto) Eos # (Auto) Baso # (Auto) Total Counted Immature Gran % Nucleated RBC % Immature Gran # Segmented Neutrophils Lymphocytes Monocytes Eosinophils Basophils Myelocytes Nucleated RBCs # Platelet Estimate INR PT Patient/Control Mix D-Dimer, Quantitative Circ Anticoag PTT Sodium Potassium Chloride Carbon Dioxide Anion Gap BUN Creatinine GFR Calculation BUN/Creatinine Ratio Glucose Calculated Osmolality Calcium Total Bilirubin AST ALT Alkaline Phosphatase Total Creatine Kinase CK-MB (CK-2) Troponin I < 0.015 Total Protein Albumin Globulin Albumin/Globulin Ratio Triglycerides 73 Cholesterol 101 LDL Cholesterol 52.0 VLDL Cholesterol 14.6 HDL Cholesterol 47 Heart Disease Risk Ratio 2.15 Free T4 1.00 TSH 3rd Generation 2.450 05/16/17 05/16/17 05/16/17 23:18 23:18 23:18 WBC 5.9 RBC 4.34 Hgb 13.6 Hct 39.1 MCV 90.1 MCH 31 MCHC 34.8 RDW 12.3 Plt Count 238 MPV 10.6 Neut % (Auto) 46.4 Lymph % (Auto) 30.1 Phelps % (Auto) 19.4 H Eos % (Auto) 2.7 Baso % (Auto) 0.7 Neut # (Auto) 2.7 Lymph # (Auto) 1.8 Phelps # (Auto) 1.1 H Eos # (Auto) 0.2 Baso # (Auto) 0.0 Total Counted 100 Immature Gran % 0.7 Nucleated RBC % 0.0 Immature Gran # 0.04 Segmented Neutrophils 45 L Lymphocytes 30 Monocytes 18 H Eosinophils 4 Basophils 2.0 H Myelocytes 1 Nucleated RBCs # 0.00 Platelet Estimate Normal INR PT Patient/Control Mix D-Dimer, Quantitative Circ Anticoag PTT Sodium 142 Potassium 4.1 Chloride 105 Carbon Dioxide 28 Anion Gap 13.1 BUN 14 Creatinine 0.90 GFR Calculation 71 BUN/Creatinine Ratio 15.00 Glucose 106 Calculated Osmolality 283.1 Calcium 8.6 Total Bilirubin 0.60 AST 23 ALT 49 Alkaline Phosphatase 102 Total Creatine Kinase 97 CK-MB (CK-2) < 1.0 Troponin I < 0.015 Total Protein 7.0 Albumin 4.2 Globulin 2.8 Albumin/Globulin Ratio 1.5 Triglycerides Cholesterol LDL Cholesterol VLDL Cholesterol HDL Cholesterol Heart Disease Risk Ratio Free T4 TSH 3rd Generation 05/16/17 23:18 WBC RBC Hgb Hct MCV MCH MCHC RDW Plt Count MPV Neut % (Auto) Lymph % (Auto) Phelps % (Auto) Eos % (Auto) Baso % (Auto) Neut # (Auto) Lymph # (Auto) Phelps # (Auto) Eos # (Auto) Baso # (Auto) Total Counted Immature Gran % Nucleated RBC % Immature Gran # Segmented Neutrophils Lymphocytes Monocytes Eosinophils Basophils Myelocytes Nucleated RBCs # Platelet Estimate INR 1.0 PT Patient/Control Mix 10.2 D-Dimer, Quantitative <= 0.5 Circ Anticoag PTT 25.2 Sodium Potassium Chloride Carbon Dioxide Anion Gap BUN Creatinine GFR Calculation BUN/Creatinine Ratio Glucose Calculated Osmolality Calcium Total Bilirubin AST ALT Alkaline Phosphatase Total Creatine Kinase CK-MB (CK-2) Troponin I Total Protein Albumin Globulin Albumin/Globulin Ratio Triglycerides Cholesterol LDL Cholesterol VLDL Cholesterol HDL Cholesterol Heart Disease Risk Ratio Free T4 TSH 3rd Generation - Imaging and Cardiology Cardiology Procedure: report reviewed by me Procedure: Chest x-ray: report reviewed by me DS: Provider Date of admission: 05/17/17 00:33 Primary care physician: . No PCP Attending physician on admission: Conrad Melendez MD Discharging clinician: Jenny Duffy NP Expected date of discharge: 05/17/17
[2017-05-17] MEDS ORDERED: ASPIRIN EC 81 MG TABLET PO SCH (19:00)
[2017-05-17 19:06] VITALS: BP 145/85
[2017-05-17] MEDS ORDERED: ATORVASTATIN 40 MG TABLET PO SCH (21:00)
== END 2017-05-17 19:00 | disposition home or self-care (01) ==
LOC: N.ED 22:28 → INTOOBSV 05-17 00:33 → N.EDINP 05-17 00:33 → N.TELES 05-17 01:10
PROVIDERS: ADMIT Internal Medicine Cardiovascular Disease; ATTEND Internal Medicine Cardiovascular Disease
PROC: CLCCHCL (ICD-10-PCS; 2017-05-17 15:45)